=== PATIENT | female | born 1970 | race Caucasian/White ===

== ENCOUNTER 2017-06-01 18:50 | Emergency (ER) | payer BC ==
[2017-06-01 18:56] VITALS: BP 167/80
[2017-06-01] MEDS ORDERED: Glucagon,Human Recombinant 1 MG Vial IM ONE (19:24)
--- NOTE | 2017-06-01 20:49 | EDM.PDOC ---
ED HPI GENERAL MEDICAL PROBLEM - General Chief Complaint: ENT Problem Stated Complaint: [id number] PIECE OF CHICKEN STUCK IN THROAT Time Seen by Provider: 06/01/17 19:10 Source of Information: Reports: Patient History Limitations: Reports: No Limitations - History of Present Illness INITIAL COMMENTS - FREE TEXT/NARRATIVE: difficulty swallowing, c/o feels like a piece of chicken stuck in throat. Hx of strictures in past. last dilation 2 years ago. Unable to swallow water. Onset: Today Throat Pain Score (Numeric/FACES): 3 - Related Data Allergies Allergy/AdvReac Type Severity Reaction Status Date / Time Penicillins Allergy Hives Verified 06/01/17 18:57 Home Meds: Home Meds . [No Known Home Meds] 08/28/15 [History] Past Medical History - Past Health History Medical/Surgical History: Denies Medical/Surgical History HEENT History: Reports: None Cardiovascular History: Reports: None Respiratory History: Reports: None Gastrointestinal History: Reports: None Genitourinary History: Reports: None CASE BRIEFER History: Reports: Musculoskeletal History: Reports: None Neurological History: Reports: None Psychiatric History: Reports: None Endocrine/Metabolic History: Reports: None Hematologic History: Reports: None Immunologic History: Reports: None Oncologic (Cancer) History: Reports: None Dermatologic History: Reports: None - Infectious Disease History Infectious Disease History: Reports: None - Past Surgical History Head Surgeries/Procedures: Reports: None Social & Family History - Family History Family Medical History: Noncontributory - Tobacco Use Smoking Status *Q: Never Smoker Second Hand Smoke Exposure: No - Recreational Drug Use Recreational Drug Use: No ED ROS ENT - Review of Systems Review Of Systems: ROS reveals no pertinent complaints other than HPI. ED EXAM, ENT - Physical Exam Exam: See Below Exam Limited By: No Limitations General Appearance: Alert, Anxious, Mild Distress Eye Exam: Bilateral Eye: EOMI, PERRL Ears: Normal External Exam, Normal TMs Nose: Normal Inspection, Normal Mucousa Mouth/Throat: Normal Inspection, Normal Gums, Normal Oropharynx Head: Atraumatic, Normocephalic Neck: Normal Inspection, Supple, Non-Tender, Full Range of Motion Respiratory/Chest: No Respiratory Distress, Lungs Clear, Normal Breath Sounds Cardiovascular: Normal Peripheral Pulses, Regular Rate, Rhythm GI/Abdominal: Normal Bowel Sounds, Soft, No Distention, Other (tolerating secrestions unable to swallow sips water. ) Back: Normal Inspection Extremities: Normal Inspection Neurological: Alert, Oriented, Normal Cognition Psychiatric: Normal Affect, Normal Mood Skin: Warm, Dry, Intact, Normal Color Course - Vital Signs Last Recorded V/S: Last Vital Signs Temp 97.5 F 06/01/17 18:54 Pulse 71 06/01/17 18:54 Resp 18 06/01/17 18:54 BP 167/80 H 06/01/17 18:54 Pulse Ox 100 06/01/17 18:54 - Orders/Labs/Meds Meds: Medications Discontinued Medications Generic Name Dose Route Start Last Admin Trade Name Freq PRN Reason Stop Dose Admin Glucagon 1 mg 06/01/17 19:24 06/01/17 19:55 Glucagen IM 06/01/17 19:25 1 mg ONETIME ONE Administration - Re-Assessments/Exams Free Text/Narrative Re-Assessment/Exam: Continued fullness in throat, anxious, unable to tolerate own secretions. TC contact [facility]. Accepting for EGD. Tx via private vehicle. Stable condition. No respiratory compromise. Departure - Departure Time of Disposition: 21:49 Disposition: Home, Self-Care 01 Condition: Undetermined Clinical Impression: Esophageal foreign body Qualifiers: Encounter type: initial encounter Qualified Code(s): T18.108A - Unspecified foreign body in esophagus causing other injury, initial encounter - Discharge Information Instructions: Swallowed Foreign Body, Adult, [id number] Forms: ED Department Discharge Additional Instructions: nothing to eat or drink [facility] emergency room by 7am Thursday, Urgent follow up if difficulty breathing or unable to tolerate own secretions.
== END 2017-06-01 21:49 | disposition home or self-care (01) ==
LOC: DL.ED 18:50
DX: T18.128A Food in esophagus causing other injury, initial encounter (principal); X58.XXXA Exposure to other specified factors, initial encounter; Z88.0 Allergy status to penicillin
CPT/HCPCS: 96372; 99282; J1610

== ENCOUNTER 2018-10-26 14:15 | Emergency (ER) | payer BC ==
[2018-10-26] MEDS ORDERED: LORazepam 0.5 MG Tab PO ONE (14:42)
[2018-10-26 14:44] VITALS: BP 158/100
--- NOTE | 2018-10-26 15:41 | EDM.PDOC ---
ED HPI GENERAL MEDICAL PROBLEM - General Chief Complaint: ENT Problem Stated Complaint: CHOKING ON FOOD Time Seen by Provider: 10/26/18 14:30 Source of Information: Reports: Patient, RN, RN Notes Reviewed History Limitations: Reports: No Limitations - History of Present Illness INITIAL COMMENTS - FREE TEXT/NARRATIVE: Pt to ER with c/o food stuck in the esophagus. She States she has had her esophagus stretched numerous times. This past Thursday the patient had an esophageal spasm and went to [facility] ER. She was admitted and had an EGD yesterday. No food was found in the esophagus at that time. She was discharged. Today she ate some hamburger and states she feels as though food is caught in her esophagus again. Pt is very anxious. She states she has an appointment with Dr. Harper on . Onset: Today, Sudden - Related Data Allergies Allergy/AdvReac Type Severity Reaction Status Date / Time Penicillins Allergy Hives Verified 10/26/18 14:19 Home Meds: Home Meds Pantoprazole Sodium 40 mg PO DAILY 10/26/18 [History] Past Medical History - Past Health History Medical/Surgical History: Denies Medical/Surgical History HEENT History: Reports: Other (See Below) Other HEENT History: Throat spasms, getting food stuck Cardiovascular History: Reports: None Respiratory History: Reports: None Gastrointestinal History: Reports: None Other Gastrointestinal History: throat spasms and getting food stuck Genitourinary History: Reports: None NUTRITION INTERN History: Reports: Musculoskeletal History: Reports: None Neurological History: Reports: None Psychiatric History: Reports: None Endocrine/Metabolic History: Reports: None Hematologic History: Reports: None Immunologic History: Reports: None Oncologic (Cancer) History: Reports: None Dermatologic History: Reports: None - Infectious Disease History Infectious Disease History: Reports: None - Past Surgical History Head Surgeries/Procedures: Reports: None GI Surgical History: Reports: EGD Social & Family History - Family History Family Medical History: Noncontributory - Tobacco Use Smoking Status *Q: Never Smoker Second Hand Smoke Exposure: No ED ROS ENT - Review of Systems Review Of Systems: ROS reveals no pertinent complaints other than HPI. ED EXAM, ENT - Physical Exam Exam: See Below Exam Limited By: No Limitations General Appearance: Alert, Anxious, Mild Distress Eye Exam: Bilateral Eye: EOMI, Normal Inspection Ears: Normal External Exam, Hearing Grossly Normal Nose: Normal Inspection Mouth/Throat: Normal Inspection, Normal Gums, Normal Lips, Normal Oropharynx, Normal Teeth Head: Atraumatic, Normocephalic Neck: Normal Inspection, Supple, Non-Tender, Full Range of Motion Respiratory/Chest: No Respiratory Distress, Lungs Clear, Normal Breath Sounds, No Accessory Muscle Use, Chest Non-Tender Cardiovascular: Normal Peripheral Pulses, Regular Rate, Rhythm, No Edema, No Gallop, No JVD, No Murmur, No Rub GI/Abdominal: Normal Bowel Sounds, Soft, Non-Tender, No Organomegaly, No Distention, No Abnormal Bruit, No Mass (Female) Exam: Deferred Rectal (Female) Exam: Deferred Back: Normal Inspection, Full Range of Motion Extremities: Normal Inspection, Normal Range of Motion, Non-Tender, No Pedal Edema, Normal Capillary Refill Neurological: Alert, Oriented, CN II-XII Intact, Normal Cognition, Normal Gait, Normal Reflexes, No Motor/Sensory Deficits Psychiatric: Anxious, Tearful Skin: Warm, Dry, Intact, Normal Color, No Rash Lymphatic: No Adenopathy Course - Vital Signs Last Recorded V/S: Last Vital Signs Temp 99.4 F 10/26/18 14:17 Pulse 75 10/26/18 14:17 Resp 16 10/26/18 14:17 BP 158/100 H 10/26/18 14:17 Pulse Ox 100 10/26/18 14:17 - Orders/Labs/Meds Meds: Medications Discontinued Medications Generic Name Dose Route Start Last Admin Trade Name Freq PRN Reason Stop Dose Admin Lorazepam 0.5 mg 10/26/18 14:42 10/26/18 14:48 Ativan PO 10/26/18 14:43 0.5 mg ONETIME ONE Administration - Re-Assessments/Exams Free Text/Narrative Re-Assessment/Exam: 10/26/18 15:33 Patient states she feels much better after the lorazepam. She states she does not feel anything in the throat at this time. 10/26/18 15:34 Discussed patient case with Steff Ramirez, phone nurse at [facility]. She states Dr. Harper is out of the office this afternoon. She states she will have Dr. Harper's nurse call the patient in the morning on her cell phone. Patient is aware of this and states understanding. Departure - Departure Time of Disposition: 15:41 Disposition: Home, Self-Care 01 Condition: Fair Clinical Impression: Foreign body in esophagus Qualifiers: Encounter type: initial encounter Qualified Code(s): T18.108A - Unspecified foreign body in esophagus causing other injury, initial encounter - Discharge Information *PRESCRIPTION DRUG MONITORING PROGRAM REVIEWED*: No *COPY OF PRESCRIPTION DRUG MONITORING REPORT IN PATIENT MARYCHUY: No Instructions: Aspiration Precautions, Adult, Swallowed Foreign Body, Adult, [id number] Referrals: Sunil Arevalo MD [Primary Care Provider] - Forms: ED Department Discharge Additional Instructions: Soft foods and liquids until seen by Dr. Leroy Harper's office will contact you tomorrow morning. If you do not hear from them, call them. [phone] Return to the ER with any further problems RX: Lorazepam
== END 2018-10-26 15:51 | disposition home or self-care (01) ==
LOC: DL.ED 14:15
DX: T18.108A Unspecified foreign body in esophagus causing other injury, initial encounter (principal); Z88.0 Allergy status to penicillin; Z79.899 Other long term (current) drug therapy
CPT/HCPCS: 99283; A9270-GY

== ENCOUNTER 2023-03-17 05:16 | Day surgery (SDC) | payer BC ==
[2023-03-17] MEDS ORDERED: Dextrose 5%-0.45% NaCl 1,000 ML IV SCH ×3 (05:52→07:30)
[2023-03-17] MEDS ORDERED: fentaNYL 100 MCG/2 ML SDV ONE (05:55)
[2023-03-17] MEDS ORDERED: Midazolam 1 MG/ML 2 ML SDV ONE (05:55)
[2023-03-17] MEDS ORDERED: fentaNYL 100 MCG/2 ML SDV IV ONE ×3 (06:29→06:41)
[2023-03-17] MEDS ORDERED: Midazolam 1 MG/ML 2 ML SDV IV ONE ×6 (06:30→06:36)
[2023-03-17] MEDS ORDERED: Sodium Chloride 0.9% 10 ML Syringe FLUSH PRN (07:30)
[2023-03-17 11:23] VITALS: BP 136/72; PULSE 50
== END 2023-03-17 08:40 | disposition home or self-care (01) ==
LOC: DL.ENDO 05:16
PROVIDERS: ATTEND Internal Medicine Gastroenterology
DX: Z12.11 Encounter for screening for malignant neoplasm of colon (principal); D12.4 Benign neoplasm of descending colon; K57.30 Diverticulosis of large intestine without perforation or abscess without bleeding; F41.1 Generalized anxiety disorder; F32.A Depression, unspecified; I10 Essential (primary) hypertension; G47.00 Insomnia, unspecified; E78.5 Hyperlipidemia, unspecified; Z98.890 Other specified postprocedural states; Z88.0 Allergy status to penicillin; Z88.1 Allergy status to other antibiotic agents
CPT/HCPCS: J2250; J3010; J7042